=== PATIENT | male | born 1985 ===

== ENCOUNTER → 2017-10-04 | Emergency (ER) | payer OTHER ==
[~2017-10-04] VITALS: Ht 185.4 cm; Wt 79.4 kg
[~2017-10-04] MED LIST: DEPAKOTE ER500 MG; MOTRIN800 MG PO; SEROQUEL200 MG
== END | disposition home or self-care (01) ==
LOC: ER 20:05
DX: S01.02XA Laceration with foreign body of scalp, initial encounter (principal); W26.8XXA Contact with other sharp object(s), not elsewhere classified, initial encounter; Y93.89 Activity, other specified; Y92.69 Other specified industrial and construction area as the place of occurrence of the external cause; Y99.8 Other external cause status

== ENCOUNTER 2018-05-22 23:27 | Emergency (ER) | payer OTHER ==
[~2018-05-22] VITALS: Ht 185.4 cm; Wt 88.0 kg
[2018-05-23] MEDS ORDERED: LEVSIN/SL0.125 MG SL ×2 (03:54)
[2018-05-23] MEDS ORDERED: CEFUROXIME250 MG PO ×2 (03:54)
== END 2018-05-23 03:59 | disposition home or self-care (01) ==
LOC: ER 23:27
DX: R10.32 Left lower quadrant pain (principal)